=== PATIENT | female | born 1960 | race Caucasian/White ===

== ENCOUNTER 2016-10-11 13:00 | Inpatient (IN) | payer MEDICARE, MEDICAID ==
[2016-11-09] MEDS ORDERED: Scopolamine 1.5 mg/72 hour Patch ONE (06:06)
[2016-11-09] MEDS ORDERED: Bupivacaine HCl 0.5%/Epinephrine 1:200,000/PF 30 ml Vial ONE (06:50)
[2016-11-09] MEDS ORDERED: Heparin 5,000 UNITS/ML VIAL ONE (07:00)
[2016-11-09] MEDS ORDERED: Fentanyl 100 MCG/2 ML VIAL ONE ×2 (07:02→12:51)
[2016-11-09] MEDS ORDERED: Oxymetazoline HCl 0.05% ( 15 ML ) ONE (07:03)
[2016-11-09] MEDS ORDERED: Levofloxacin 500 mg/D5W 100 ml Premix Bag ONE (07:39)
[2016-11-09] MEDS ORDERED: Succinylcholine Chloride 20 MG/ML 10 ml SYRINGE FS ONE (07:59)
[2016-11-09] MEDS ORDERED: Lidocaine 1% PF 5 ML VIAL ONE (07:59)
[2016-11-09] MEDS ORDERED: Dexamethasone 20 MG/5 ML VIAL ONE (07:59)
[2016-11-09] MEDS ORDERED: PHENYLEPHRINE-NS 100 MCG/ML 10 ML SYRINGE ONE (07:59)
[2016-11-09] MEDS ORDERED: Propofol 200 MG/20 ML VIAL ONE (07:59)
[2016-11-09] MEDS ORDERED: ePHEDrine/0.9% NaCl/PF SYRINGE 50 mg/10 ml ONE (07:59)
[2016-11-09] MEDS ORDERED: Ondansetron HCl/PF 4 MG/2 ML Vial ONE (07:59)
[2016-11-09] MEDS ORDERED: Phenylephrine 10 MG/NS 250 ML 250 ML ONE (08:16)
[2016-11-09] MEDS ORDERED: SUGAMMADEX SODIUM 500 MG/5 ML VIAL ONE (09:04)
[2016-11-09] MEDS ORDERED: Nitroglycerin 2% Ointment 1 INCH/1 GM Packet ONE (09:06)
[2016-11-09] MEDS ORDERED: Nitroglycerin 50 MG/250 ML BOT 250 ML ONE (09:07)
[2016-11-09] MEDS ORDERED: Rocuronium Bromide 50 MG/5 ML VIAL ONE (10:53)
[2016-11-09] MEDS ORDERED: diphenhydrAMINE HCl 50 MG/ML 1 ML VIAL IVP PRN (12:16)
[2016-11-09] MEDS ORDERED: Dextrose 5% in Water 1,000 ML IV PRN (12:16)
[2016-11-09] MEDS ORDERED: Promethazine HCl 25 MG/ML VIAL IM PRN (12:16)
[2016-11-09] MEDS ORDERED: Dextrose 50% Abboject 50 ML SYRINGE SLOW IVP PRN ×2 (12:16)
[2016-11-09] MEDS ORDERED: Morphine Sulfate 2 MG/ML SYRINGE SLOW IVP PRN (12:16)
[2016-11-09] MEDS ORDERED: Dextrose 5% in Water 1,000 ML IV SCH (12:30)
[2016-11-09] MEDS: D5 1/2 NS w/20 mEq KCL 1,000 ML IV SCH ×2 (13:23→19:54)
[2016-11-09] MEDS ORDERED: Nitroglycerin 50 MG/250 ML BOT 250 ML IVPB SCH (13:45)
--- NOTE | 2016-11-09 13:49 | OP ---
PREOPERATIVE DIAGNOSES: Morbid obesity, stapler malfunction. SURGEON: Heath Tovar M.D. COAL TRAM DRIVER: Regis Sanchez M.D. PROCEDURE PERFORMED: Laparoscopic hand-assisted Mariah-en-Y gastric bypass with intraoperative esopha gogastroscopy. INDICATIONS: Patient is a 55-year-old morbidly obese female who has attempted multiple weight loss programs without success. She has severe reflux and desired a Mariah-en-Y gastric bypass. FINDINGS: Things went well. She had a very heavy large omentum necessitating splitting of the omen ofelia after firing of the EEA stapler at the gastrojejunostomy and trying to extract the EEA stapler. The anvil disconnected from the stapler and was lodged inside the gastric pouch which was very diff icult to get out and required conversion to a hand-assisted port in order to get it out and then was able to complete the surgery. PROCEDURE IN DETAIL: After informed consent was obtained, the patient was taken to the operating ro om and given general endotracheal anesthesia. Her abdomen was prepped and draped in the usual fashi on. Local anesthesia infiltrated subcutaneously and deep. A 12 mm incision was performed approxima tely 8 inches below the xiphoid slightly to the left. A Veress needle inserted. Drop test performe d. Pneumoperitoneum was created to a volume of 2 liters of carbon dioxide. Utilizing a bladeless 1 2 mm trocar and 0-degree laparoscope, direct visual entry in the abdominal cavity was performed. Pn eumoperitoneum was created to a pressure of 15 mmHg. The patient then under direct vision, two 12 m m ports were placed on the right side and one on the left. The omentum was grasped and advanced sup eriorly. The ligament of Treitz was identified. The jejunum was run 50 cm, then divided with the G IA 60 mm white load. Then the Mariah limb was measured off at 100 cm and a [id number] functional en d-to-end anastomosis was performed. Enterotomies were performed and the MANINDER 60 mm stapler was inser kiel one limb in each limb of bowel, closed, fired. Common enterotomy was closed with a transverse f iring of the MANINDER 60. The potential hernia of Topete was closed with a pursestring 2-0 silk suture . Now at this point, the patient was placed in steep reverse Trendelenburg position. Nathansen felisa er retractor inserted. Left lobe of liver retracted superiorly. An attempt was made at a linear si de-to-side anastomosis gastrojejunostomy. The gastric pouch was first created utilizing a series of linear 60 mm blue load staplers from the lesser curvature and up through the angle of His. Then, a n enterotomy or gastrotomy was performed with electrocautery anteriorly and this was enlarged with b kamilah dissection, the Mariah limb was found and brought up, but there was a lot of tension, so the omen ofelia was split utilizing the LigaSure. Then, an enterotomy was performed in the jejunum and the line ar 60 mm blue load stapler was inserted one limb and limb of the jejunum and one limb into the stoma ch pouch. This was closed and fired. At the conclusion of this, it was noted that the gastrotomy h ad torn away because of the weight of the bowel on this area. I was not happy with the anastomosis and elected to redo this with an EEA, so through the gastrostomy, the anvil was inserted within the gastric pouch. It was tented up anteriorly and electrocautery was used to score the stomach wall. The anvil was brought from the inside stomach out through this anterior opening. Then, the gastroto my was closed with a MANINDER 60 mm blue load stapler. Then, the incision was enlarged in left upper amandeep drant and the EEA was inserted into the jejunum and brought out antimesenteric completely so that y ou could not see the orange hub. The spike was attached to the anvil with a good snap and then clos ed maximally. Then, it was fired and opened one and half turns, then it was removed and as it is re moved, felt a pop and there was no anvil. The anvil was not attached to the stapler. I went ahead and did an endoscopy. I could not really see the anvil but we felt like we could feel it in the ann , so a gastrotomy was performed to try and find this anvil which seemed like it was medial and we opened up the staple line medially, I really could not get to it, so I opened up the Mariah limb [facility] and at this point I had Dr. Sanchez scrubbed in and we were able to see, part of it, but we could not grab it. So, the left upper quadrant incision was converted to hand-assisted port and the skin was incised. The muscle and fascia incised and the hand-assisted port inserted. This allowed the ability to grasp the anvil and retrieve it. We removed the anvil. Then, the original gastrotomy or the medial gastrotomy was closed with a blue linear stapler. Then using a white stapler, 60 mm, th e redundant limb of the Mariah limb to close off the enterotomy. Intraoperative endoscopy was perform ed. The video endoscope inserted under direct vision and advanced easily into the Mariah limb. This was insufflated with air under water. There was no air leak. There was no hemorrhage. The bowel w as decompressed and the scope removed. Hemostasis was assured. Trocars and retractors removed. Th e fascia closed with a running #1 PDS on the hand-assisted port area, subcutaneous irrigated. Subcu taneous closed with interrupted 3-0 Vicryl. Skin closed with running subcuticular 4-0 Rapide. Ster i-Strips applied. Sterile bandages applied. Patient tolerated the procedure well, but she did have EKG changes during the procedure and required nitroglycerin. For that reason, we are going to watc h her in the ICU postoperatively for rule out MN.
[2016-11-09 14:08] LABS: Troponin I Less than 0.010 ng/mL (< 0.028)
--- NOTE | 2016-11-09 14:24 | CON ---
DATE OF CONSULTATION: 11/09/2016 CONSULTING PHYSICIAN: Heath Tovar M.D. Forty-five minutes critical care time. HISTORY OF PRESENT ILLNESS: This is a 55-year-old female who underwent laparoscopic gastric bypass surgery earlier today. Towards the end of the procedure, she developed ST segment depression. She was started on a nitroglycerin drip by the Anesthesia team and she was brought to the CCU for furthe r therapy. This patient saw me in the office a couple of weeks ago in reference to sleep apnea. She does have sleep apnea, but was unable to get a new CPAP machine because it was deemed she needed a new sleep s tudy by her insurance provider. She also underwent cardiac catheterization by Dr. Santana with apparen t clean coronaries and was cleared for surgery from their aspect. At the current time, she is not experiencing any chest pain, although she says she is somewhat short of breath. PAST MEDICAL HISTORY: 1. Hypertension. 2. Morbid obesity. 3. Leg edema. 4. Congestive heart failure. 5. Obstructive sleep apnea. 6. Chronic obstructive pulmonary disease. 7. Postmenopausal. 8. Depression. PAST SURGICAL HISTORY: Gastric banding in 2008 and subsequent removal, laparoscopic cholecystectomy , section, heart catheterization x2, colonoscopy, endoscopy and a tubal ligation. MEDICATIONS PRIOR TO ADMISSION: Cetirizine 10 mg daily, potassium chloride 10 mEq daily, metolazone 2.5 mg daily, Protonix 40 mg twice daily, verapamil 180 mg daily, Prozac 40 mg daily and furosemide 40 mg daily. FAMILY MEDICAL HISTORY: Mother of cancer. She also has high blood pressure and cervical cance r that run in her family. SOCIAL HISTORY: Patient is a former smoker, does not consume alcohol. ALLERGIES: AMOXICILLIN, PENICILLIN and PERCOCET cause rashes. REVIEW OF SYSTEMS: Twelve-point review of systems otherwise negative. PHYSICAL EXAMINATION: VITAL SIGNS: Her temperature is 98, pulse 81, blood pressure 139/65 and O2 sats 95% on simple Venti mask. HEENT: Pupils react. Sclerae anicteric. Oropharynx clear. NECK: Without adenopathy, JVD or bruits. LUNGS: Clear to auscultation bilaterally with no wheezing. CARDIAC: S1 and S2 regular with a 3/6 systolic murmur. ABDOMEN: Soft, obese and nontender. NEUROLOGIC: She has 4 ports that had been covered with Band-Aids. EXTREMITIES: 1+ brawny edema in lower extremities. LABORATORY DATA: She has had labs drawn postoperatively, but results are pending. ASSESSMENT: 1. Transient ST segment depression on EKG - not prominent on the current EKG that I am seeing, but I do not have access to the findings that were present in the OR at this time. 2. Underlying chronic obstructive pulmonary disease. 3. Sleep apnea. 4. History of heart failure. RECOMMENDATIONS: 1. Cardiology consultation has been ordered. Await results of troponin and other laboratory testin g. 2. Continue nitroglycerin drip for the time being. 3. Nebulization treatments. 4. BiPAP at night as needed for sleep apnea.
[2016-11-09 14:33] LABS: ALT (SGPT) 300 U/L (8-55); AST (SGOT) 233 U/L (5-34); Alkaline Phosphatase 66 U/L (40-150); Anion Gap 11 mmol/L (10-20); BUN (Urea Nitrogen) 12 mg/dL (9.8-20.1); Bilirubin, Total 0.5 mg/dL (0.2-1.2); Calc. Creatinine Clearance 212 mL/min (70-130); Calcium 8.6 mg/dL (7.8-10.44); Carbon Dioxide 28 mmol/L (22-29); Chloride 103 mmol/L (98-107); Estimated GFR-MDRD 86; Globulin 3.5 g/dL (2.4-3.5)
[2016-11-09 14:46] LABS: #Lymphocytes 0.5 thou/uL (1.20-3.40); #Monocytes 0.6 thou/uL (0.11-0.59); #Neutrophils 14.8 thou/uL (1.40-6.50); %Eosinophils 0.2 % (0.0-10.0); %Lymphocytes 3.2 % (21.0-51.0); %Monocytes 3.7 % (0.0-10.0); Anisocytosis MODERATE=16-30 cells (100X) (0-5/hpf); Hematocrit 39.7 % (36.0-47.0); Hypochromia SLIGHT = 6-15 cells (100X) (0-5/hpf); Mean Platelet Volume 6.9 fL (7.4-10.4); Microcytosis SLIGHT = 6-15 cells (100X) (0-5/hpf); Ovalocytes MODERATE= 6-15 cells (100X) (0-1/hpf); Polychromasia SLIGHT = 2-3 cells (100X) (0-2/hpf); Red Blood Cell (RBC) Count 5.16 mill/uL (4.20-5.40); White Blood Cell (WBC) Count 15.9 thou/uL (4.8-10.8)
[2016-11-09] MEDS ORDERED: Ketorolac Tromethamine 60 MG/2 ML VIAL ONE (15:02)
[2016-11-09] MEDS: Ketorolac Tromethamine 30 MG/ML VIAL IVP PRN ×2 (15:40→21:10)
[2016-11-09 17:08] LABS: Oxyhemoglobin 97.1 % (94.0-97.0); Sodium 139 mmol/L (135-148)
[2016-11-09 17:09] LABS: Oxyhemoglobin 92.9 % (94.0-97.0); Sodium 140 mmol/L (135-148)
[2016-11-09 17:48] LABS: Mode OR ABG; Vent YES
[2016-11-09 17:48] LABS: Mode OR ABG; Vent YES
[2016-11-09] MEDS: Ondansetron HCl/PF 4 MG/2 ML Vial IVP PRN (19:45)
[2016-11-09 20:37] LABS: Troponin I Less than 0.010 ng/mL (< 0.028)
--- NOTE | 2016-11-09 22:19 | CON ---
DATE OF CONSULTATION: 11/09/2016 ROOM NUMBER: C4 in the CCU. PRIMARY CARE PHYSICIAN: Dr. Heath Tovar. PRIMARY BUSINESS SOLUTION ANALYST: Dr. Santana. REASON FOR CARDIOLOGY CONSULTATION: EKG change during the gastric bypass surgery in 11/09/2016. HISTORY OF PRESENT ILLNESS: Ms. Linder is a 55-year-old female with a significant history of hypertension, obesity and ex-smoker, she quit 1 month ago. Ms. Linder underwent gastric bypass surgery today by Dr. Tovar. Towards the end of the surgery, The patient's EKG showed ST segment change in lead V5. She was transferred to the CCU with nitroglycerin drip for further evaluation and continuous public weigher. Unfortunately, the EKG showing those episodes are not in the patient's record or in the charts at this moment. The EKG which was taken when she was transferred to the CCU shows sinus rhythm with no ST changes and looks very similar to the patient's previous EKG in 10/17/2016. The patient underwent cardiac catheterization on 09/01/2016, which shows normal coronary artery disease with 16 mmHg, LVOT gradient measure at the pull back. Echocardiogram in 07/2016 shows EF of 65% to 70% with severe concentric left ventricular hypertrophy, idiopathic hypertrophic subaortic stenosis with systolic anterior motion of the mitral valve, IHSS gradient is 85 mmHg, grade I diastolic dysfunction without elevated left atrial pressure, mitral valve regurgitation, mitral tricuspid valve regurgitation, mildly elevated right ventricular systolic pressure. The patient's cholesterol level in 08/2016, showed total cholesterol of 151, triglycerides 76, HDL 34, and LDL 104. During the initial Cardiology consult assessment, the patient was still drowsy from today's surgery, but she is alert and oriented x4. She is complaining of the pressure in her abdomen due to the gas during the surgery and the patient is having the frequent passing and burping. The patient denied any chest pain or discomfort, palpitation or fluttering in her chest, dizziness or lightheadedness , numbness in the left arm, diaphoresis, or nausea or vomiting at this time. The patient's daughter is at the bedside at this time. PAST MEDICAL HISTORY: 1. Hypertension. 2. Diastolic heart failure. 3. Obstructive hypertrophic cardiomyopathy. 4. Sleep apnea. 5. Chronic obstructive pulmonary disease. 6. Ex-smoker, she quit 1 month ago. PAST SURGICAL HISTORY: 1. x1. 2. Lap band placed and removed. 3. Gallbladder removal. 4. Cardiac catheterization, latest procedure was in 09/2016. FAMILY HISTORY: There was significant history of diabetes in maternal side. The patient's maternal grandfather due to cardiac disease. The patient 's maternal grandmother due to stroke. SOCIAL HISTORY: The patient is and lives with patient's daughter and patient's brother. She used occasional alcohol use. She is an ex-smoker. She quit 09/27/2016 for this gastric bypass surgery. She used to enjoy coffee 2-3 cups in the morning and one soda at night; however, because of this procedure today, she cut down to one cup of coffee a day. Unfortunately, she does not do an exercise that much due to the congestive heart failure and obesity. REVIEW OF SYSTEMS: The following complete review of systems was negative, unless otherwise mentioned in the HPI or below. Constitutional: Sense of well being, ability to conduct usual activity and exercise tolerance. Skin: Rash, itching, change in hair growth or loss, nail change, breast lump, tenderness, swelling, nipple discharge. Eyes: Vision change, double vision, tearing, blind spots or pain. She wears glasses for reading. HEENT: Headache vertigo, lightheadedness, nose bleeding, cold, nose obstruction or discharge, dental difficulty, gingival bleeding, neck stiffness, pain, tenderness, mass in the thyroid or other areas. Cardiovascular: Precordial pain, substernal distress, palpitations, syncope, dyspnea on exertion, orthopnea, nocturnal dyspnea, cyanosis, claudication. She has chronic edema in bilateral lower extremities; however, according to the daughter's report the CHF symptoms such as edema in the lower extremities and shortness of breath were stable for the last one month. Respiratory: Pain, shortness of breath, wheezing, stridor, cough, hemoptysis. Gastrointestinal: Poor appetite, dysphagia, indigestion, abdominal pain, heartburn, nausea or vomiting, jaundice, constipation or diarrhea. Abnormal stools, hemorrhoid, recent change in the bowel habit. Genitourinary: Urgency, frequency, dysuria, nocturia, hematuria, polyuria, oliguria, unusual color of urine, stones, hesitancy. Musculoskeletal: Pain, swelling, redness or heat of the muscle or joint, limitation of motion, muscular weakness, atrophy or cramps, but she uses a scooter for long distance due to her obesity and CHF symptoms; however, she can walk around the home without any difficulty. Neurologic: Seizure conversion paralysis, tremor, incoordination, difficulty with memory of speech, sensory or motor disturbance or muscular coordination. Psychiatric: Emotional problem, anxiety, depression , previous psychiatric care, unusual perceptions, hallucinations. PHYSICAL EXAMINATION: VITAL SIGNS: Blood pressure 140/46, heart rate 76 with sinus rhythm, respiratory rate 12, O2 sat 96% with 2.5 liters, temperature 97.8. GENERAL: Well-developed, well-nourished without any acute distress. The patient is very lethargic and drowsy from previous procedure in this morning. HEAD: Normocephalic, atraumatic. EYES: Extraocular muscle movements are intact. ENT: Oral and nasal mucosa are moist without lesion. NECK: No JVD. Neck is supple and normal range of motion. LUNGS: Clear to auscultate bilaterally, but diminished at the bases. No wheezing, no rales or rhonchi noted. CARDIOVASCULAR: Regular rate and rhythm. Normal S1 and S2. There are no S3 or S4. There are murmurs noted in left upper sternal border, but no hives, thrill, bruits or rubs noted. EXTREMITIES: There are 2+ pulses in the bilateral dorsal pedis and posterior tibial. Carotid pulse present without bruit or thrill. There are 2-3+ edema in the bilateral lower extremities. ABDOMEN: Tender to palpate. Bowel sounds are very hypoactive. They have 4 laparoscopic access to her abdomen with Dermabond. MUSCULOSKELETAL: She is able to move all extremities, but complained about back pain from long time lay in surgical bed. SKIN: Warm and dry. No skin rash, lesion or bruise noted. The surgical site is dry and intact. NEUROLOGIC: The patient is alert and oriented x4, drowsy, but normal affect, no focal. PSYCHIATRIC: Mood and affect are normal. EKG: A 12-lead EKG, which was taken in the CCU shows sinus rhythm with heart rates of [address] segment changes. LABORATORY DATA: WBC 15.6, hemoglobin 11.8, hematocrit 39.7, platelet 202. Sodium 138, potassium 3.7, BUN 12, creatinine 0.71, glucose 180. AST is 19 and ALT is 24, CK-MB is 3.4. Troponin is less than 0.010, which was taken at 1315 hours. ASSESSMENT AND PLAN: 1. ST segment changes during the gastric bypass surgery. Unfortunately, there is no EKG records during the procedure showing the ST segment change in her records or in her chart at this moment. The 12-lead EKG, which was taken at the CCU show normal sinus rhythm with no ST segment change and the patient is asymptomatic at this time. The patient's cardiac catheterization in 08/2016 shows normal coronary artery disease. 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 2. Obstructive hypertrophic cardiomyopathy. The patient's condition is stable at this time. Depends on the patient's condition, we may like to start Lasix and metolazone 2.5 mg once a day. We would like to continue to monitor at this moment. 3. Hypertension. Her blood pressure is stable at this time. She is on the p.r.n. hydralazine IV push medication. We may start verapamil 80 mg once a day. 4. Chronic obstructive pulmonary disease. She has a long history of tobacco abuse. She quit smoking last month ago. At this moment, the patient's lung is clear, diminished at the bases, but this condition is stable and Dr. Mckinney has already assessed this patient. 5. Sleep apnea, the patient's condition is stable at this moment. We like to continue to monitor. Thank you very much for allowing the Cardiology Service to participate in care of this patient. We will follow along with the patient's care team and make further recommendations as appropriate.Dr. Santana will follow up with this patient from tomorrow. CASSIDY
[2016-11-10] MEDS: D5 1/2 NS w/20 mEq KCL 1,000 ML IV SCH ×4 (04:15→21:47)
[2016-11-10] MEDS: Ondansetron HCl/PF 4 MG/2 ML Vial IVP PRN (04:18)
[2016-11-10 05:15] LABS: #Lymphocytes 0.9 thou/uL (1.20-3.40); #Monocytes 1.2 thou/uL (0.11-0.59); #Neutrophils 10.8 thou/uL (1.40-6.50); %Basophils 0.1 % (0.0-1.0); %Eosinophils 0.1 % (0.0-10.0); %Lymphocytes 7.1 % (21.0-51.0); Hematocrit 37.9 % (36.0-47.0); Mean Platelet Volume 11.4 fL (7.4-10.4); Red Blood Cell (RBC) Count 4.85 mill/uL (4.20-5.40); White Blood Cell (WBC) Count 12.9 thou/uL (4.8-10.8)
[2016-11-10 05:39] LABS: Troponin I 0.029 ng/mL (< 0.028)
[2016-11-10 05:53] LABS: Chloride 103 mmol/L (98-107)
[2016-11-10 05:54] LABS: Calcium 8.6 mg/dL (7.8-10.44)
[2016-11-10 05:56] LABS: Anion Gap 14 mmol/L (10-20); Carbon Dioxide 24 mmol/L (22-29)
[2016-11-10 05:58] LABS: BUN (Urea Nitrogen) 12 mg/dL (9.8-20.1); Calc. Creatinine Clearance 231 mL/min (70-130); Estimated GFR-MDRD Greater than 90
[2016-11-10 06:07] LABS: ALT (SGPT) 336 U/L (8-55); AST (SGOT) 232 U/L (5-34); Alkaline Phosphatase 64 U/L (40-150); Bilirubin, Direct 0.3 mg/dL (0.1-0.3); Bilirubin, Total 0.6 mg/dL (0.2-1.2); Protein, Total 7.1 g/dL (6.0-8.3)
--- NOTE | 2016-11-10 06:13 | ADD-CON ---
ADDENDUM DATE OF ADMISSION: 11/09/2016 DATE OF CONSULTATION: 11/09/2016 INDICATION FOR CONSULTATION: A 55-year-old female with EKG changes in the perioperative period for a gastric procedure. HISTORY OF PRESENT ILLNESS: This unfortunate lady who is 55 years old, does have a history of left ventricular outflow tract obstruction with history of chest pain in the past. She did have an echoc ardiogram, which showed normal ejection fraction. She also had a cardiac catheterization in 2010, w hich showed normal coronary arteries, ejection fraction 55%, with her obstructive hypertrophic cardi omyopathy. She has remained stable. She has been seen in the office and followed up by Dr. Santana. She also has some hypertension, which is now under reasonable control. During her EKG changes today in the operating suite, I did not have any indication or I do not see any tracings at this time to compare. I am not quite certain of which EKG changes occurred, whether or not she has some type of arrhythmia. There is no documentation in the chart that I can find at this time to indicate an abno rmality that was found during the procedure and this will need to be discussed this with the anesthe siologist if there are any significant concerns about the patient, but certainly with her history of hypertrophic obstructive cardiomyopathy, she may have some EKG changes. Otherwise, she has remaine d stable. She does have some discomfort in the back, but otherwise has no chest pain or any other c omplaints from a cardiac standpoint at this time. For her past medical history, social history and review of systems, please refer to the notes alread y dictated by the nurse practitioner, Bailey. PHYSICAL EXAMINATION: GENERAL: Reveals a morbidly obese female, who is in no acute distress at this time. VITAL SIGNS: Heart rate is 72 and regular. Her blood pressure is 148/80, respiratory rate is 13, O 2 saturation is 97%. CHEST: Clear to auscultation without rales, rhonchi or wheezing. CARDIOVASCULAR: Reveals a regular rate and rhythm. I did not hear any significant murmurs at this time. There were no heaves or thrills noted. ABDOMEN: Shows obesity. EXTREMITIES: Showed no clubbing, cyanosis or edema at this time. NEUROLOGIC: The patient appears to be intact. IMPRESSION: Some type of abnormal EKG changes during operative procedure in the perioperative perio d in a patient who has a hypertrophic obstructive cardiomyopathy, which has remained stable. I will continue her present medications at this time. Her medications prior to admission included Lasix, metolazone and potassium. Her medications included just Lasix 40 mg a day, metolazone 2.5 mg a day, Protonix 40 mg a day, verapamil 80 mg a day, Zyrtec 10 mg a day, as well as replacement of potassiu m. Dr. Santana will see the patient tomorrow, resume her care, but at this time from a cardiac standpo int, she appears to be stable. We will continue to monitor her for any further EKG changes or arrhy thmias.
--- NOTE | 2016-11-10 08:40 | PRG ---
DATE OF SERVICE: 11/10/2016 SUBJECTIVE: The patient has recovered from her episode yesterday without much fanfare. She is sore from her surgery. PHYSICAL EXAMINATION: VITAL SIGNS: On examination, temperature is 99.1, pulse 90, blood pressure 153/69, total intake 24 hours 5 and output 1000. HEENT: Unremarkable. NECK: No JVD. CHEST: Clear to auscultation. CARDIAC: S1 and S2 regular. ABDOMEN: Slightly distended. EXTREMITIES: No edema. LABORATORY DATA: Sodium 137, potassium 4.3, chloride 103, CO2 24, BUN 12, creatinine 0.6, glucose 1 17, AST 232, ALT 336, troponin 0.029. White blood cell count 12.9, hematocrit 37.9, and platelet co unt 220. ASSESSMENT: 1. Status post gastric bypass surgery. 2. ST segment depression perioperatively. 3. Obstructive sleep apnea. PLAN: She will be transferred out to the telemetry floor for continue cardiac monitoring. Cardiolo gy has been consulted. She will continue CPAP at night for ALESIA. Further care per General Surgery.
--- NOTE | 2016-11-10 09:28 | PDOC.CTH ---
Cardiology Progress Note - Subjective Doing well overnight. No new issues. Denies CV symptoms. Reviewed rhythm strips and ECGs. All stable. ROS negative this morning. - Objective Vital Signs Temp Pulse Resp BP Pulse Ox 11/10/16 07:02 86 19 100 11/10/16 04:00 99.1 F 11/10/16 00:40 96 176/77 H 11/10/16 00:00 98.2 F 11/09/16 22:26 76 13 95 Weight 322 lb 15.635 oz 11/09/16 11/10/16 11/11/16 06:59 06:59 06:59 Intake Total 2095 Output Total 1000 Balance 1095 - Physical Examination General/Neuro: alert & oriented x3, NAD Neck: carotid US brisk, no JVD present Lungs: CTA, unlabored respirations Heart: PMI normal, RRR Abdomen: no HSM, NT/ND, soft Extremities: + edema B Other PE findings: Neuro: no focal motor defs - Telemetry Telemetry Rhythm: sinus rhythm - Labs Result Diagrams: 11/10/16 04:40 11/10/16 04:40 Troponin/CKMB CK-MB (CK-2) 5.0 ng/mL (0-6.6) 11/10/16 04:40 Troponin I 0.029 ng/mL (< 0.028) H 11/10/16 04:40 - Assessment/Plan 1. ECG changes interoperatively: these are dynamic changes that can occur with intraabdominal pressure common with this surgery. No acute changes seen. She has no CAD and is not at risk of WI currently. ECG changes are secondary changes seen with LVH and HOCM. She may be transferred to surgical floor from CV perspective and taken off of telemetry now that she is in the postoperative phase of her hospitalization. She will follow up with me in the office as scheduled.
[2016-11-10] MEDS: Enoxaparin Sodium 40 MG/0.4 ML SYRINGE SC SCH (09:52)
[2016-11-10] MEDS: Pantoprazole 40 MG VIAL IVP SCH (09:52)
[2016-11-10] MEDS: Ketorolac Tromethamine 30 MG/ML VIAL IVP PRN ×2 (10:17→18:27)
[2016-11-10 13:22] LABS: Troponin I 0.107 ng/mL (< 0.028)
[2016-11-11] MEDS ORDERED: GASTROGRAFIN 30 ML BOT ONE (01:24)
[2016-11-11] MEDS: D5 1/2 NS w/20 mEq KCL 1,000 ML IV SCH (05:38)
[2016-11-11] MEDS ORDERED: Metolazone 2.5 MG TAB PO PRN (07:29)
--- NOTE | 2016-11-11 07:44 | PRG ---
DATE OF SERVICE: 11/11/2016 SUBJECTIVE: The patient remains in the ICU, she developed desaturation last night, required change to a vision BiPAP rather than her own home CPAP. She also had an increase in requirement of her O2. PHYSICAL EXAMINATION: VITAL SIGNS: Temperature 98.8, pulse 86, blood pressure 139/72, 24 intake 2934, output 915, weight 322 pounds. HEENT: Unremarkable. NECK: No JVD. LUNGS: She has inspiratory crackles at both bases best heard posteriorly. CARDIAC: S1 and S2 regular with a 2/6 systolic murmur at the left sternal border. ABDOMEN: Soft, slightly distended. Bowel sounds hypoactive. EXTREMITIES: No clubbing, cyanosis, trace edema. LABORATORY DATA: No new labs were obtained today. ASSESSMENT: 1. Pulmonary edema. 2. Hypoxemia. 3. Underlying obstructive sleep apnea. 4. Status post laparoscopic gastric bypass surgery. PLAN: The patient will be diuresed. I will restart her antihypertensives. I will stop her IV flui d, hopefully this will improve her O2 sats. She remains on Lovenox for DVT prophylaxis.
--- NOTE | 2016-11-11 08:02 | PDOC.CTH ---
Cardiology Progress Note - Subjective Desats last night noted on BiPAP. Exam consistent with CHF. Denies CP. Rhythm stable. - ROS shortness of breath - Objective Vital Signs Temp Pulse Resp Pulse Ox 11/11/16 07:22 87 94 L 11/11/16 07:19 87 17 94 L 11/11/16 05:00 98.8 F 11/11/16 04:00 19 11/11/16 02:25 102 H 11/10/16 22:03 117 H 18 94 L 11/10/16 21:00 109 H 11/10/16 20:00 99.1 F 117 H 18 90 L Weight 322 lb 15.635 oz 11/10/16 11/11/16 11/12/16 06:59 06:59 06:59 Intake Total 2095 2934 Output Total 1000 915 Balance 1095 2019 - Physical Examination General/Neuro: alert & oriented x3, NAD Neck: carotid US brisk, no JVD present Lungs: CTA, unlabored respirations Heart: PMI normal, RRR Abdomen: no HSM, NT/ND, soft Extremities: + edema B Other PE findings: Neuro: no focal motor defs - Telemetry Telemetry Rhythm: sinus rhythm - Labs Result Diagrams: 11/10/16 04:40 11/10/16 04:40 Troponin/CKMB CK-MB (CK-2) 5.3 ng/mL (0-6.6) 11/10/16 12:42 Troponin I 0.107 ng/mL (< 0.028) H 11/10/16 12:42 - Assessment/Plan 1. ECG changes interoperatively: these are dynamic changes that can occur with intraabdominal pressure common with this surgery. No acute changes seen. She has no CAD and is not at risk of HI currently. ECG changes are secondary changes seen with LVH and HOCM. She may be transferred to surgical floor from CV perspective and taken off of telemetry now that she is in the postoperative phase of her hospitalization. She will follow up with me in the office as scheduled. 2. CHF, acute/chronic diastolic: agree with gentle diuresis. Avoid overdoing this to prevent worsening of LVOT gradient. 3. HOCM: mild LVOT gradient preop. Monitor with diuresis. Can go to surgical floor when ok with surgery and critical care staff.
[2016-11-11] MEDS: Furosemide 40 MG/4 ML VIAL SLOW IVP SCH ×2 (08:38→22:28)
[2016-11-11] MEDS: Enoxaparin Sodium 40 MG/0.4 ML SYRINGE SC SCH (08:38)
[2016-11-11] MEDS: Pantoprazole 40 MG VIAL IVP SCH (08:38)
[2016-11-11] MEDS ORDERED: Furosemide 40 MG/4 ML VIAL SLOW IVP SCH (09:00)
[2016-11-11] MEDS ORDERED: Furosemide 40 MG TAB PO SCH (09:00)
[2016-11-11] MEDS: Ketorolac Tromethamine 30 MG/ML VIAL IVP PRN ×2 (09:05→17:33)
[2016-11-11 20:13] VITALS: BMI 51.6
--- NOTE | 2016-11-11 20:47 | RAD ---
MODIFIED UPPER GI 11/11/16 INDICATION: Status post gastric bypass. Total fluoroscopic time - 0.8 minutes; total exposure - 422.39 mGy. FINDINGS: 15 mL of gastrografin were administered PO. There is no evidence of extraluminal leak or obstruction . IMPRESSION: No extraluminal leak or obstruction involving the patient's gastric bypass. POS: [facility]
[2016-11-12] MEDS: Ketorolac Tromethamine 30 MG/ML VIAL IVP PRN ×2 (03:01→11:54)
[2016-11-12 04:52] LABS: #Eosinphils 0.1 thou/uL (0.0-0.7); #Lymphocytes 0.6 thou/uL (1.20-3.40); #Monocytes 0.7 thou/uL (0.11-0.59); #Neutrophils 8.4 thou/uL (1.40-6.50); %Basophils 0.5 % (0.0-1.0); %Eosinophils 0.7 % (0.0-10.0); %Lymphocytes 6.3 % (21.0-51.0); %Monocytes 7.4 % (0.0-10.0); Hematocrit 32.4 % (36.0-47.0); Mean Platelet Volume 11.4 fL (7.4-10.4); Red Blood Cell (RBC) Count 4.11 mill/uL (4.20-5.40); White Blood Cell (WBC) Count 9.9 thou/uL (4.8-10.8)
[2016-11-12 05:05] LABS: Anion Gap 13 mmol/L (10-20); BUN (Urea Nitrogen) 14 mg/dL (9.8-20.1); Calc. Creatinine Clearance 216 mL/min (70-130); Calcium 8.9 mg/dL (7.8-10.44); Carbon Dioxide 31 mmol/L (22-29); Chloride 100 mmol/L (98-107); Estimated GFR-MDRD 89
[2016-11-12] MEDS: Furosemide 40 MG/4 ML VIAL SLOW IVP SCH ×2 (08:52→21:58)
[2016-11-12] MEDS: Pantoprazole 40 MG VIAL IVP SCH (08:52)
[2016-11-12] MEDS: Enoxaparin Sodium 40 MG/0.4 ML SYRINGE SC SCH (08:53)
[2016-11-12] MEDS: FLUoxetine HCl 20 MG CAP PO SCH (08:53)
[2016-11-12] MEDS ORDERED: Magnesium 2 GM/NS 0.9% 100 ML 2 GM in Premix Bag 1 BAG IVPB SCH (11:15)
--- NOTE | 2016-11-12 11:26 | PDOC.CTH ---
Cardiology Progress Note - Subjective Doing well/ Denies any chest pain, tightness, pressure, SOB. - Objective Vital Signs Temp Pulse Resp Pulse Ox 11/12/16 08:44 96 11/12/16 08:40 75 16 96 11/12/16 04:00 99.1 F 11/12/16 02:16 108 H 22 H 93 L 11/12/16 00:00 99.4 F Weight 320 lb 11/11/16 11/12/16 11/13/16 06:59 06:59 06:59 Intake Total 2934 361 60 Output Total 915 3325 0 Balance 2018 60 - Physical Examination General/Neuro: alert & oriented x3, NAD Neck: no JVD present Lungs: unlabored respirations Heart: other: (Irregular) Abdomen: NT/ND Extremities: + edema B (1+) - Telemetry Telemetry Rhythm: Afib - Labs Result Diagrams: 11/12/16 04:25 11/12/16 04:25 Troponin/CKMB CK-MB (CK-2) 5.3 ng/mL (0-6.6) 11/10/16 12:42 Troponin I 0.107 ng/mL (< 0.028) H 11/10/16 12:42 - Assessment/Plan 1. ECG changes interoperatively. 2. CHF, acute/chronic diastolic 3. HOCM 4. Paroxysmal afib. PLAN: - Cautious diuresis given her history of HCM. - Currently in afib in the 150's with borderline low BP, will start amiodarone drip.
--- NOTE | 2016-11-12 11:56 | PRG ---
DATE OF SERVICE: 11/12/2016 SUBJECTIVE: Ms. Linder is doing well. She is having no pain, no nausea, no reflux symptoms, she pa ssed her swallow test yesterday. She is doing well on the liquids and would like to drink more. Katya olivares been in atrial fibrillation with RVR this morning, has been seen by Dr. Calvo. She is on amiodar one, hemodynamically stable. Her abdomen is soft, nontender, nondistended. LABORATORY DATA: White blood cell count is 9, hemoglobin 9.7, creatinine 0.69. ASSESSMENT: Postoperative day #3, gastric bypass, laparoscopy by Dr. Tovar. Doing well overall, bu t now with atrial fibrillation with rapid ventricular response, controlled on amiodarone. PLAN: Stay in the ICU, but will allow liquids as tolerated. Continue to encourage ambulation as mu ch as possible here.
[2016-11-12] MEDS: AMIODARONE HCL IVPB SCH ×6 (11:58→20:07)
[2016-11-12] MEDS: WATER IVPB SCH ×6 (11:58→20:07)
[2016-11-12] MEDS: ADMIXTURE FEE IVPB SCH ×6 (11:58→20:07)
[2016-11-12] MEDS: DEXTROSE IVPB SCH ×6 (11:58→20:07)
--- NOTE | 2016-11-12 15:34 | PRG ---
DATE OF SERVICE: 11/12/2016 SUBJECTIVE: She denies any difficulty breathing or pain. PHYSICAL EXAMINATION: VITAL SIGNS: Blood pressure is 196/69, sats are , temperature 98 to 99.1. CHEST: Decreased breath sounds without any wheezing. CARDIAC: Normal S1, S2. No gallops. ABDOMEN: Soft. No masses. LABORATORY: White count 9000, H\T\H is 10 and 32, platelet count normal. Electrolytes are normal. IMPRESSION: 1. Status post gastric bypass. 2. Obesity. 3. Congestive heart failure. PLAN: She appears to be stable. Continue present neb treatments. Continue CPAP. We will follow.
[2016-11-13] MEDS: Ketorolac Tromethamine 30 MG/ML VIAL IVP PRN (03:46)
[2016-11-13] MEDS: Furosemide 40 MG/4 ML VIAL SLOW IVP SCH (08:21)
[2016-11-13] MEDS: Pantoprazole 40 MG VIAL IVP SCH (08:21)
[2016-11-13] MEDS: Enoxaparin Sodium 40 MG/0.4 ML SYRINGE SC SCH (08:21)
[2016-11-13] MEDS: FLUoxetine HCl 20 MG CAP PO SCH (08:21)
[2016-11-13] MEDS: DEXTROSE IVPB SCH ×3 (11:41)
[2016-11-13] MEDS: ADMIXTURE FEE IVPB SCH ×3 (11:41)
[2016-11-13] MEDS: AMIODARONE HCL IVPB SCH ×3 (11:41)
[2016-11-13] MEDS: WATER IVPB SCH ×3 (11:41)
[2016-11-13] MEDS ORDERED: Digoxin 0.5 MG/2 ML AMP SLOW IVP SCH (11:45)
--- NOTE | 2016-11-13 14:16 | PDOC.CTH ---
Cardiology Progress Note - Subjective She is feeling well. Her HR remains in afib in the 120's borderline BP. - Objective Vital Signs Temp Pulse Resp Pulse Ox 11/13/16 13:50 68 12 100 11/13/16 12:59 82 11/13/16 11:56 97.9 F 11/13/16 09:45 96 14 98 11/13/16 08:00 98.4 F 96 14 96 11/13/16 06:21 79 16 100 11/13/16 04:00 98.6 F 11/13/16 02:33 83 18 98 Weight 310 lb 11/12/16 11/13/16 11/14/16 06:59 06:59 06:59 Intake Total 361 946 590 Output Total 3325 3250 800 Balance -1955 -3748 -210 - Physical Examination General/Neuro: alert & oriented x3, NAD Neck: no JVD present Lungs: unlabored respirations Heart: other: (Irregular) Abdomen: NT/ND Extremities: + edema B (1+) - Telemetry Telemetry Rhythm: Afoib HR 120 - Labs Result Diagrams: 11/12/16 04:25 11/12/16 04:25 Troponin/CKMB CK-MB (CK-2) 5.3 ng/mL (0-6.6) 11/10/16 12:42 Troponin I 0.107 ng/mL (< 0.028) H 11/10/16 12:42 - Assessment/Plan 1. ECG changes interoperatively. 2. CHF, acute/chronic diastolic 3. HOCM 4. Paroxysmal afib. PLAN: - Will hold diuresis today given history of HCM. - Continue amiodarone drip. Add digoxin.
[2016-11-13] MEDS: Hydrocodone-Acetamin 15 ML UDCUP PO PRN (14:32)
--- NOTE | 2016-11-13 17:10 | PRG ---
DATE OF SERVICE: 11/13/2016 SUBJECTIVE: Ms. Linder is doing well today. She is wearing her CPAP and denies complaints. Pain i s well controlled. PHYSICAL EXAMINATION: VITAL SIGNS: Her pulse is in the mid 80s. Her blood pressure is stable. She is afebrile. ABDOMEN: Soft. The wounds are healing well. ASSESSMENT: Postoperative day #4, laparoscopic gastric bypass with significant comorbidities, now i n atrial fibrillation, controlled on amiodarone drip. PLAN: I think she is stable to transfer to [facility]. Encouraged her to ambulate. Continue CPAP when s he is sleeping. Will allow bariatric full liquid diet. Add Lortab elixir for pain.
--- NOTE | 2016-11-13 17:34 | PRG ---
DATE OF SERVICE: 11/13/2016 SUBJECTIVE: Pebbles Linder this morning, awake, alert, responsive. She is still in SVT, on amiodar one. She denies any difficulty breathing. PHYSICAL EXAMINATION: VITAL SIGNS: Blood pressure 94/64, pulse 120 and regular, respirations 18, sats 94%. CHEST: Decreased breath sounds, no wheezing. CARDIAC: Normal S1 and S2. IMPRESSION: Status post Lap-Band, supraventricular tachycardia, morbid obesity, sleep apnea. PLAN: and amiodarone to control SVT. Continue supportive care. Agreed with transfer to telemetry. We will follow.
[2016-11-14] MEDS: Hydrocodone-Acetamin 15 ML UDCUP PO PRN ×3 (01:34→22:37)
[2016-11-14] MEDS: ADMIXTURE FEE IVPB SCH ×3 (04:05)
[2016-11-14] MEDS: WATER IVPB SCH ×3 (04:05)
[2016-11-14] MEDS: DEXTROSE IVPB SCH ×3 (04:05)
[2016-11-14] MEDS: AMIODARONE HCL IVPB SCH ×3 (04:05)
--- NOTE | 2016-11-14 09:24 | PRG ---
DATE OF SERVICE: 11/14/2016 SUBJECTIVE: The patient is doing well, has no acute complaints. PHYSICAL EXAMINATION: VITAL SIGNS: Temperature 98.7, pulse 87, respirations 16, O2 sat 96%, blood pressure 121/69. HEENT: Unremarkable. NECK: No JVD. CHEST: Fairly clear without wheezing. CARDIAC: S1, S2, irregularly irregular. ABDOMEN: Soft. EXTREMITIES: No edema. ASSESSMENT: 1. Postop from gastric bypass, relatively stable. 2. Stable sleep apnea. 3. Paroxysmal atrial fibrillation. PLAN: Mainly cardiac issue at this point in terms of disposition for discharge from the hospital. She is scheduled to have a sleep study in late November.
[2016-11-14] MEDS: Digoxin 0.25 MG TAB PO SCH (10:14)
[2016-11-14] MEDS: Enoxaparin Sodium 40 MG/0.4 ML SYRINGE SC SCH (10:15)
[2016-11-14] MEDS: Pantoprazole 40 MG VIAL IVP SCH (10:16)
[2016-11-14] MEDS: FLUoxetine HCl 20 MG CAP PO SCH (10:16)
--- NOTE | 2016-11-14 14:44 | PQF ---
CLINICAL DOCUMENTATION IMPROVEMENT CLARIFICATION FORM: ICD-10 Updated PLEASE DO AN ADDENDUM TO THE PROGRESS NOTE WITH ANY DOCUMENTATION UPDATES OR ADDITIONS AND CARRY THROUGH TO DC SUMMARY. THANK YOU. DATE: 11/14/16 ATTN: Dr. Heath Tovar Please exercise your independent, professional judgment in responding to the clarification form. Clinical indicators are provided on the bottom of this form for your review Please check appropriate box(s): [ ] Acute Respiratory Failure: [ ] with Hypoxia [ ] with Hypercapnia [ ] Acute On Chronic Respiratory Failure: [ ] with Hypoxia [ ] with Hypercapnia [ ] Acute Respiratory Failure due to: (etiology) [ ] Chronic Respiratory Failure only [ ] with Hypoxia [ ] with Hypercapnia [ ] Other diagnosis [ ] Unable to determine The following CLINICAL INDICATORS - SIGNS / SYMPTOMS are present in the medical record: GS PN 11/11: ON BIPAP SATS IN 80S PULMONARY PN 11/11: SHE DEVELOPED DESATURATION LAST NIGHT, REQUIRED CHANGE TO A VISION BIPAP RATHER THAN HER OWN HOME CPAP. ALSO HAD AN INCREASE IN REQUIREMENT OF HER O2. RISKS: CARDIOLOGY CONSULT: HX HTN, DIASTOLIC HEART FAILURE, COPD. CARDIOLOGY PN 11/10: CHF, ACUTE/ CHRONIC DIASTOLIC. TREATMENT: CPOE 11/09: RESP: O2 TO KEEP O2 SAT 92% CPOE 11/09: DUONEB Q 4 HR CPOE 11/11: IV LASIX 40 MG IV BID. DC'D 11/13 (This form is maintained as a part of the permanent medical record) 2014 [employer], [employer]. All Rights Reserved La Nena Jensen RN, BSN [email or web address] Office: [phone] [facility]
--- NOTE | 2016-11-14 14:55 | PRG ---
DATE OF SERVICE: 11/14/2016 SUBJECTIVE: The patient reports she is feeling pretty well. She is tolerating liquids well. Pain is controlled on p.o. medications. She had a bowel movement last night. She was still on amiodaron e IV for her heart which was just discontinued this minute. PHYSICAL EXAMINATION: VITAL SIGNS: Temperature 98.5, pulse 71, blood pressure 95/57. GENERAL: She looks fine. She is awake and alert. HEENT: Unremarkable. LUNGS: Clear. HEART: Regular rate and rhythm. ABDOMEN: Soft. Incisions healing well. ASSESSMENT: Status post gastric bypass, doing well. PLAN: We will discharge home when okay with Cardiology.
[2016-11-15] MEDS: Digoxin 0.25 MG TAB PO SCH (08:21)
[2016-11-15] MEDS: FLUoxetine HCl 20 MG CAP PO SCH (08:21)
[2016-11-15] MEDS: Pantoprazole 40 MG VIAL IVP SCH (08:22)
[2016-11-15] MEDS: Enoxaparin Sodium 40 MG/0.4 ML SYRINGE SC SCH (08:22)
--- NOTE | 2016-11-15 11:47 | PRG ---
DATE OF SERVICE: 11/15/2016 SUBJECTIVE: She is doing well, had no complaints today, she wants to go home. OBJECTIVE: VITAL SIGNS: Temperature 98.7, pulse 80, respirations 16, O2 sat 94%. HEENT: Unremarkable. NECK: No JVD. LUNGS: Clear to auscultation, no wheezing. CARDIOVASCULAR: S1, S2. Irregular. ABDOMEN: Soft. EXTREMITIES: No edema. LABORATORY DATA: No labs were done today. ASSESSMENT: 1. Stable sleep apnea. 2. Postoperative from gastric bypass. 3. Paroxysmal atrial fibrillation. PLAN: Discharge okay from a pulmonary standpoint, I think we are waiting contact lens technician's clearance. She has instructions to see me in the office after discharge.
[2016-11-15 12:43] VITALS: BP 125/59; TEMP 98.8
--- NOTE | 2016-11-15 21:53 | DIS ---
DISCHARGE DIAGNOSES: Morbid obesity, chronic obstructive pulmonary disease, obstructive sleep apnea , congestive heart failure, hypertension, EKG changes intraoperatively with ST-segment changes, card iomyopathy. PROCEDURES DURING ADMISSION: Laparoscopic Mariah-en-Y gastric bypass, intraoperative esophagogastrosc opy, and postoperative Gastrografin swallow. HOSPITAL COURSE: The patient was admitted and taken to the operating room, shortly after division o f the bowel, she was found to have significant EKG changes, requiring nitroglycerin. Procedure was rather complicated. Postoperatively, she was observed in the ICU. She was not intubated, but remai miguel ángel on BiPAP for a couple of days. Eventually, she was able to be weaned off that, came to the floo r, placed on telemetry. She did have some atrial fibrillation, requiring amiodarone, this has now b een weaned. She is doing well. She is tolerating liquids well. She is discharged home in good con dition on hydrocodone elixir, and Zofran. She will follow up with me in 2 weeks.
== END 2016-11-15 16:44 | disposition home or self-care (01) | DRG 619 ==
LOC: SURG A 11-09 05:59 → CCU 11-09 12:56 → 2NO 11-13 14:52
PROVIDERS: ADMIT Surgery; ATTEND Surgery
PROC: 0D164ZA Bypass Stomach to Jejunum, Percutaneous Endoscopic Approach (ICD-10-PCS; principal; 2016-11-09)
PROC: 0DJ00ZZ Inspection of Upper Intestinal Tract, Open Approach (ICD-10-PCS; 2016-11-09)
PROC: 5A09357 Assistance with Respiratory Ventilation, Less than 24 Consecutive Hours, Continuous Positive Airway Pressure (ICD-10-PCS; 2016-11-09)
PROC: 5A09457 Assistance with Respiratory Ventilation, 24-96 Consecutive Hours, Continuous Positive Airway Pressure (ICD-10-PCS; 2016-11-10)
PROC: 5A09457 Assistance with Respiratory Ventilation, 24-96 Consecutive Hours, Continuous Positive Airway Pressure (ICD-10-PCS; 2016-11-12)
PROC: 5A09357 Assistance with Respiratory Ventilation, Less than 24 Consecutive Hours, Continuous Positive Airway Pressure (ICD-10-PCS; 2016-11-14)
PROC: 5A09357 Assistance with Respiratory Ventilation, Less than 24 Consecutive Hours, Continuous Positive Airway Pressure (ICD-10-PCS; 2016-11-15)
DX: E66.01 Morbid (severe) obesity due to excess calories (principal); I50.33 Acute on chronic diastolic (congestive) heart failure; I47.1 Supraventricular tachycardia; I42.1 Obstructive hypertrophic cardiomyopathy; I48.0 Paroxysmal atrial fibrillation; Z68.43 Body mass index [BMI] 50.0-59.9, adult; R94.31 Abnormal electrocardiogram [ECG] [EKG]; R09.02 Hypoxemia; I11.0 Hypertensive heart disease with heart failure; K21.9 Gastro-esophageal reflux disease without esophagitis; G47.33 Obstructive sleep apnea (adult) (pediatric); J44.9 Chronic obstructive pulmonary disease, unspecified; Z87.891 Personal history of nicotine dependence; F32.9 Major depressive disorder, single episode, unspecified; Z78.0 Asymptomatic menopausal state; I87.2 Venous insufficiency (chronic) (peripheral)
CPT/HCPCS: 36415; 36416; 74241; 80048; 80053; 80076; 82150; 82553; 82805; 84484; 85025; 93005; 93010; 93798; 94640; 94660; A4216; C9113; J0282; J0360; J0670; J1100; J1160; J1200; J1642; J1644; J1650; J1885; J1940; J1956; J2001; J2270; J2405; J2550; J2704; J3010; J3475; J7070; J7620

== ENCOUNTER 2016-11-17 08:18 | Emergency (ER) | payer MEDICARE, MEDICAID ==
[2016-11-17 09:26] LABS: #Eosinphils 0.2 thou/uL (0.0-0.7); #Lymphocytes 1.4 thou/uL (1.20-3.40); #Monocytes 1.2 thou/uL (0.11-0.59); #Neutrophils 8.9 thou/uL (1.40-6.50); %Basophils 0.4 % (0.0-1.0); %Lymphocytes 11.7 % (21.0-51.0); %Monocytes 10.5 % (0.0-10.0); Hematocrit 34.4 % (36.0-47.0); Mean Platelet Volume 9.8 fL (7.4-10.4); Red Blood Cell (RBC) Count 4.41 mill/uL (4.20-5.40); White Blood Cell (WBC) Count 11.8 thou/uL (4.8-10.8)
[2016-11-17 09:32] LABS: Lactic Acid - Sepsis 1.3 mmol/L (0.5-2.2)
[2016-11-17] MEDS ORDERED: Lidocaine 1% w/Epinephrine 1:200K 30 ML VIAL ONE (09:35)
[2016-11-17 09:40] LABS: ALT (SGPT) 30 U/L (8-55); AST (SGOT) 14 U/L (5-34); Alkaline Phosphatase 58 U/L (40-150); Anion Gap 11 mmol/L (10-20); BUN (Urea Nitrogen) 9 mg/dL (9.8-20.1); Bilirubin, Total 0.7 mg/dL (0.2-1.2); CK (CPK) 23 U/L (29-168); Calc. Creatinine Clearance 0 mL/min (70-130); Carbon Dioxide 30 mmol/L (22-29); Chloride 99 mmol/L (98-107); Estimated GFR-MDRD Greater than 90; Globulin 3.4 g/dL (2.4-3.5); Protein, Total 6.4 g/dL (6.0-8.3)
[2016-11-17 09:42] LABS: Troponin I 0.085 ng/mL (< 0.028)
[2016-11-17 09:53] LABS: Hypochromia SLIGHT = 6-15 cells (100X) (0-5/hpf); Microcytosis SLIGHT = 6-15 cells (100X) (0-5/hpf); Polychromasia SLIGHT = 2-3 cells (100X) (0-2/hpf)
== END 2016-11-17 11:44 | disposition home or self-care (01) ==
LOC: ERS 08:18
DX: T81.4XXA Infection following a procedure, initial encounter (principal); I11.0 Hypertensive heart disease with heart failure; I50.9 Heart failure, unspecified; F32.9 Major depressive disorder, single episode, unspecified; F17.210 Nicotine dependence, cigarettes, uncomplicated; Z79.899 Other long term (current) drug therapy
CPT/HCPCS: 10180; 36415; 80053; 82550; 82553; 83605; 84484; 85025; 87040; 87070; 87076; 87205; 93005; 94760; 96361; 96374; J2270

== ENCOUNTER 2016-12-10 19:30 | Outpatient (CLI) | payer MEDICARE, MEDICAID | END 2016-12-10 19:31 | disposition home or self-care (01) | LOC: SLEEPLAB 19:30 | PROVIDERS: ATTEND Internal Medicine Critical Care Medicine | DX: G47.33 Obstructive sleep apnea (adult) (pediatric) (principal); R06.83 Snoring | CPT/HCPCS: 95811 ==

== ENCOUNTER 2017-05-12 07:31 | Outpatient (CLI) | payer MEDICARE, MEDICAID ==
[2017-05-12 09:12] LABS: #Eosinphils 0.2 thou/uL (0.0-0.7); #Lymphocytes 1.2 thou/uL (1.20-3.40); #Monocytes 0.4 thou/uL (0.11-0.59); #Neutrophils 2.9 thou/uL (1.40-6.50); %Basophils 0.2 % (0.0-1.0); %Eosinophils 3.8 % (0.0-10.0); %Lymphocytes 26.3 % (21.0-51.0); %Monocytes 8.1 % (0.0-10.0); %Neutrophils 61.6 % (42.0-75.0); Hemoglobin 13.7 g/dL (12.0-16.0); Mean Corpuscular Volume 90.6 fl (81.0-99.0); Mean Platelet Volume 9.7 fL (7.4-10.4); Platelet Count 148 thou/uL (130-400); RBC Distribution Width 14.3 % (11.5-14.5); Red Blood Cell (RBC) Count 4.71 mill/uL (4.20-5.40); White Blood Cell (WBC) Count 4.7 thou/uL (4.8-10.8)
[2017-05-12 09:30] LABS: ALT (SGPT) 17 U/L (8-55); AST (SGOT) 20 U/L (5-34); Albumin 3.7 g/dL (3.5-5.0); Alkaline Phosphatase 93 U/L (40-150); Anion Gap 8 mmol/L (10-20); BUN (Urea Nitrogen) 9 mg/dL (9.8-20.1); Bilirubin, Total 0.6 mg/dL (0.2-1.2); Calc. Creatinine Clearance 0 mL/min (70-130); Calcium 8.9 mg/dL (7.8-10.44); Carbon Dioxide 31 mmol/L (22-29); Chloride 107 mmol/L (98-107); Estimated GFR-MDRD Greater than 90; Globulin 3.2 g/dL (2.4-3.5); Glucose 84 mg/dL (70-105); Potassium 3.6 mmol/L (3.5-5.1); Protein, Total 6.9 g/dL (6.0-8.3); Sodium 142 mmol/L (136-145)
--- NOTE | 2017-05-13 18:41 | EKG ---
Test Reason : Blood Pressure : / mmHG Vent. Rate : 052 BPM Atrial Rate : 052 BPM P-R Int : 216 ms QRS Dur : 092 ms QT Int : 476 ms P-R-T Axes : 080 081 238 degrees QTc Int : 442 ms Sinus bradycardia with 1st degree A-V block Septal infarct , age undetermined Abnormal ECG Confirmed by ABDIRAHMAN MCINTYRE, DR. Jolley ([id number]) on 05/13/2017 6:41:20 PM Referred By: CHICO Confirmed By:DR. Samreen GARY MD
== END 2017-05-12 07:32 | disposition home or self-care (01) ==
LOC: LABBT 07:31
PROVIDERS: ATTEND Surgery
DX: Z01.818 Encounter for other preprocedural examination (principal); K43.2 Incisional hernia without obstruction or gangrene
CPT/HCPCS: 80053; 82306; 82607; 84207; 84425; 85025; 93005; 93010

== ENCOUNTER 2017-05-24 07:11 | Inpatient (IN) | payer MEDICARE, MEDICAID ==
[2017-05-12 08:20] VITALS: BMI 41.1
[2017-05-24] MEDS ORDERED: Levofloxacin 500 mg/D5W 100 ml Premix Bag ONE (09:05)
[2017-05-24] MEDS ORDERED: Bupivacaine/Epinephrine 0.25% 30 ML VIAL ONE (10:33)
[2017-05-24] MEDS ORDERED: Fentanyl 100 MCG/2 ML VIAL ONE ×4 (10:37→13:48)
[2017-05-24] MEDS ORDERED: Midazolam HCl 2 mg/2 ml Vial ONE (10:39)
[2017-05-24] MEDS ORDERED: Dextrose 5% in Water 1,000 ML IV PRN (12:14)
[2017-05-24] MEDS ORDERED: Promethazine HCl 25 MG/ML VIAL IM PRN (12:14)
[2017-05-24] MEDS ORDERED: Morphine 4 MG/ML VIAL SLOW IVP PRN ×2 (12:14)
[2017-05-24] MEDS ORDERED: Ondansetron HCl/PF 4 MG/2 ML Vial IVP PRN (12:14)
[2017-05-24] MEDS ORDERED: hydrALAZINE 20 MG/ML VIAL SLOW IVP PRN (12:14)
[2017-05-24] MEDS ORDERED: HYDROcodone/Acetaminophen 10/325 mg Tablet PO PRN (12:14)
[2017-05-24] MEDS ORDERED: Dextrose 50% Abboject 50 ML SYRINGE SLOW IVP PRN (12:14)
[2017-05-24] MEDS ORDERED: Levofloxacin 500 mg/D5W 100 ml Premix Bag IVPB SCH (12:15)
--- NOTE | 2017-05-24 12:38 | OP ---
PREOPERATIVE DIAGNOSIS: Incisional ventral hernia. SURGEON: Heath Tovar M.D. PROCEDURE: Laparoscopic ventral hernia repair with mesh. INDICATIONS: This is a 56-year-old female who developed an incisional hernia after gastric bypass selby rgery in the left upper quadrant. FINDINGS: About a 4 cm defect. PROCEDURE IN DETAIL: After informed consent was obtained, the patient was taken to the operating diana m and given general endotracheal anesthesia. She was placed in supine position. Her abdomen and fla nk were prepped and draped in usual fashion. Local anesthesia infiltrated subcutaneously and deep. A 12 mm incision was performed right flank and a Veress needle inserted. Drop test performed. Pneum operitoneum was created to a volume of 2 liters of carbon dioxide. Utilizing a bladeless, 12 mm troc ar and 0 degree laparoscope direct visual entry in the abdominal cavity was performed. Pneumoperiton eum was created to a pressure of 15 mmHg. Under direct vision, two 5 mm ports were placed in the rig ht side. The falciform ligament had to be taken down with the LigaSure. Then a laparoscopic lysis o f adhesions was performed utilizing the LigaSure. The defect was closed with a #2 running 0 six-inch V-Loc sutures. Then, a 6 x 8 inch piece of mesh was used. The pressure was decreased to 10 mmHg. The 6 x 8 cm Proceed mesh was fashioned with a total of 8 sutures alternating color between green and white circumferentially. It was hydrated and rolled and introduced intraabdominally, then was unrol led and utilizing the GraNee needle, the sutures were individually grasped through the skin and secur ed. Then, the mesh was further secured utilizing the SecureStrap Tacker. Hemostasis was assured. T rocars and retractors removed. The skin closed with interrupted 4-0 Rapide. Dermabond applied. The patient tolerated the procedure well and was transferred to recovery in good condition. Sponge and needle count verified correct x2.
[2017-05-24] MEDS ORDERED: Glycopyrrolate 0.2 MG/ML 5 ML SYRINGE ONE (13:14)
[2017-05-24] MEDS ORDERED: ePHEDrine/0.9% NaCl/PF SYRINGE 50 mg/10 ml ONE (13:14)
[2017-05-24] MEDS ORDERED: Lidocaine 1% PF 5 ML VIAL ONE (13:14)
[2017-05-24] MEDS ORDERED: Esmolol 100 MG/10 ML VIAL ONE (13:14)
[2017-05-24] MEDS ORDERED: Ondansetron HCl/PF 4 MG/2 ML Vial ONE (13:14)
[2017-05-24] MEDS ORDERED: Morphine 4 MG/ML VIAL ONE (13:35)
[2017-05-24] MEDS ORDERED: D5 1/2 NS w/20 mEq KCL 1,000 ML ONE (13:48)
[2017-05-24] MEDS: D5 1/2 NS w/20 mEq KCL 1,000 ML IV SCH ×2 (14:40→22:36)
[2017-05-24] MEDS: Ketorolac Tromethamine 30 MG/ML VIAL IVP SCH ×2 (18:31→23:39)
[2017-05-24] MEDS: Famotidine 20 MG TAB PO SCH (21:02)
[2017-05-24] MEDS: Famotidine/PF 20 mg/2ml Vial SLOW IVP SCH (21:04)
[2017-05-24] MEDS: HYDROcodone/Acetaminophen 10/325 mg Tablet PO PRN (21:09)
[2017-05-25] MEDS ORDERED: Sodium Chloride 0.9% 500 ML IVPB SCH ×3 (01:15→20:45)
[2017-05-25 04:33] LABS: #Eosinphils 0.1 thou/uL (0.0-0.7); #Lymphocytes 1.2 thou/uL (1.20-3.40); #Monocytes 0.5 thou/uL (0.11-0.59); #Neutrophils 3.6 thou/uL (1.40-6.50); %Basophils 0.7 % (0.0-1.0); %Eosinophils 2.1 % (0.0-10.0); %Lymphocytes 22.5 % (21.0-51.0); %Monocytes 8.8 % (0.0-10.0); %Neutrophils 65.9 % (42.0-75.0); Hemoglobin 11.9 g/dL (12.0-16.0); Mean Corpuscular HGB CONC 32.3 g/dL (32.0-36.0); Mean Corpuscular Hemoglobin 29.6 pg (27.0-31.0); Mean Corpuscular Volume 91.5 fl (81.0-99.0); Platelet Count 131 thou/uL (130-400); Red Blood Cell (RBC) Count 4.04 mill/uL (4.20-5.40); White Blood Cell (WBC) Count 5.4 thou/uL (4.8-10.8)
[2017-05-25 04:39] LABS: Anion Gap 8 mmol/L (10-20); BUN (Urea Nitrogen) 6 mg/dL (9.8-20.1); Calc. Creatinine Clearance 199 mL/min (70-130); Calcium 8.1 mg/dL (7.8-10.44); Carbon Dioxide 29 mmol/L (22-29); Chloride 108 mmol/L (98-107); Estimated GFR-MDRD Greater than 90; Glucose 93 mg/dL (70-105); Potassium 3.9 mmol/L (3.5-5.1); Sodium 141 mmol/L (136-145)
[2017-05-25] MEDS: HYDROcodone/Acetaminophen 10/325 mg Tablet PO PRN ×3 (05:57→21:44)
[2017-05-25] MEDS: Ketorolac Tromethamine 30 MG/ML VIAL IVP SCH ×4 (05:58→23:45)
[2017-05-25] MEDS: D5 1/2 NS w/20 mEq KCL 1,000 ML IV SCH ×3 (07:48→20:54)
[2017-05-25] MEDS: Famotidine 20 MG TAB PO SCH ×2 (10:04→20:54)
[2017-05-25] MEDS: Enoxaparin Sodium 40 MG/0.4 ML SYRINGE SC SCH (10:05)
[2017-05-25] MEDS ORDERED: Loratadine 10 MG TAB PO PRN (21:27)
[2017-05-25] MEDS ORDERED: Furosemide 40 MG TAB PO SCH (21:30)
[2017-05-26] MEDS: Famotidine/PF 20 mg/2ml Vial SLOW IVP SCH (00:23)
[2017-05-26] MEDS: HYDROcodone/Acetaminophen 10/325 mg Tablet PO PRN ×3 (02:32→14:12)
[2017-05-26] MEDS: Ketorolac Tromethamine 30 MG/ML VIAL IVP SCH (05:51)
[2017-05-26] MEDS: D5 1/2 NS w/20 mEq KCL 1,000 ML IV SCH (05:52)
[2017-05-26] MEDS ORDERED: FLUoxetine HCl 20 MG CAP PO SCH (09:00)
[2017-05-26] MEDS ORDERED: Furosemide 40 MG TAB PO SCH (09:00)
[2017-05-26] MEDS ORDERED: Folic Acid 1 MG TAB PO SCH (09:00)
[2017-05-26] MEDS: Enoxaparin Sodium 40 MG/0.4 ML SYRINGE SC SCH (09:53)
[2017-05-26] MEDS: Famotidine 20 MG TAB PO SCH (09:55)
[2017-05-26] MEDS ORDERED: Ondansetron ODT 4 MG TAB PO PRN (13:03)
[2017-05-26] MEDS ORDERED: Ondansetron ODT 4 MG TAB SL PRN (13:15)
--- NOTE | 2017-05-26 13:28 | DIS ---
DISCHARGE DIAGNOSES: 1. Incisional ventral hernia, postoperative pain, control issues. 2. Urinary retention. HOSPITAL COURSE: The patient was admitted. She underwent a laparoscopic ventral hernia repair with mesh. She had quite a bit of pain postoperatively and was unable to go home the next day. She was u nable to void. She had to have repeated I&O catheterization. She is better now. Pain is controlled on p.o. meds. She is voiding. She is tolerating a diet. She is discharged home in good condition on hydrocodone and Zofran to follow up with me in 2 weeks.
[2017-05-26] MEDS ORDERED: Bisacodyl 10 MG SUPP PR SCH (14:15)
[2017-05-26 15:07] VITALS: BP 158/76; TEMP 98.7
== END 2017-05-26 16:51 | disposition home or self-care (01) | DRG 354 ==
LOC: SDC 07:11 → SURG A 12:14
PROVIDERS: ADMIT Surgery; ATTEND Surgery
PROC: 0WUF4JZ Supplement Abdominal Wall with Synthetic Substitute, Percutaneous Endoscopic Approach (ICD-10-PCS; principal; 2017-05-24)
DX: K43.2 Incisional hernia without obstruction or gangrene (principal); Z68.41 Body mass index [BMI] 40.0-44.9, adult; E66.01 Morbid (severe) obesity due to excess calories; F32.9 Major depressive disorder, single episode, unspecified; K43.9 Ventral hernia without obstruction or gangrene; R33.9 Retention of urine, unspecified
CPT/HCPCS: 36415; 80048; 85025; 96374; C1781; J0131; J1650; J1885; J1956; J2001; J2250; J2270; J2405; J3010; Q0162

== ENCOUNTER 2017-10-27 11:06 | Outpatient (CLI) | payer MEDICARE, MEDICAID | END 2017-10-27 11:07 | disposition home or self-care (01) | LOC: BICRAD 11:06 | PROVIDERS: ATTEND Obstetrics & Gynecology | DX: M25.562 Pain in left knee (principal); M17.12 Unilateral primary osteoarthritis, left knee ==

== ENCOUNTER 2018-02-13 19:53 | Emergency (ER) | payer MEDICARE, OTHER ==
[2018-02-13] MEDS ORDERED: Ondansetron PF 4 MG/2 ML Vial ONE (20:18)
[2018-02-13] MEDS ORDERED: Ketorolac Tromethamine 30 MG/ML VIAL ONE (20:18)
[2018-02-13 20:27] LABS: #Eosinphils 0.1 thou/uL (0.0-0.7); #Monocytes 0.4 thou/uL (0.11-0.59); #Neutrophils 5.6 thou/uL (1.40-6.50); %Basophils 0.4 % (0.0-1.0); %Eosinophils 1.6 % (0.0-10.0); %Lymphocytes 14.5 % (21.0-51.0); %Monocytes 5.5 % (0.0-10.0); Hemoglobin 15.8 g/dL (12.0-16.0); Mean Corpuscular HGB CONC 33.7 g/dL (32.0-36.0); Mean Corpuscular Hemoglobin 32.4 pg (27.0-31.0); Mean Corpuscular Volume 96.2 fL (78.0-98.0); Mean Platelet Volume 9.9 fL (7.4-10.4); Platelet Count 160 thou/uL (130-400); RBC Distribution Width 13.2 % (11.5-14.5); Red Blood Cell (RBC) Count 4.87 mill/uL (4.20-5.40); White Blood Cell (WBC) Count 7.1 thou/uL (4.8-10.8)
[2018-02-13 20:49] LABS: ALT (SGPT) 21 U/L (8-55); AST (SGOT) 25 U/L (5-34); Alkaline Phosphatase 92 U/L (40-150); Anion Gap 12 mmol/L (10-20); BUN (Urea Nitrogen) 10 mg/dL (9.8-20.1); Bilirubin, Total 0.5 mg/dL (0.2-1.2); Calc. Creatinine Clearance 0 mL/min (70-130); Calcium 9.5 mg/dL (7.8-10.44); Carbon Dioxide 25 mmol/L (22-29); Chloride 108 mmol/L (98-107); Estimated GFR-MDRD 87; Globulin 3.3 g/dL (2.4-3.5); Glucose 104 mg/dL (70-105); Potassium 3.8 mmol/L (3.5-5.1); Protein, Total 7.3 g/dL (6.0-8.3); Sodium 141 mmol/L (136-145)
--- NOTE | 2018-02-13 21:14 | CT ---
CT ABDOMEN AND PELVIS WITHOUT CONTRAST: 02/13/2018 HISTORY: Left flank pain. COMPARISON: 03/30/2014 TECHNIQUE: Multiple contiguous axial images were obtained in a CT of the abdomen and pelvis without contrast. C oronal reformats were performed. FINDINGS: There are numerous nonobstructing calcifications in the left kidney, measuring up to 3 mm in size. T here is mild left hydronephrosis. At the distal aspect of the left ureter, at the ureterovesical nicole ction, there is a 1 to 2 mm calcification. No right-sided hydronephrosis is seen. No renal calculi are seen on the right. There are hyperdensities in the right kidney, which may represent small, hype rdense cysts. The gallbladder has been removed. The liver, adrenal glands, spleen, and pancreas are unremarkable, although evaluation is limited without IV contrast. Post surgical changes are seen in the stomach. The reproductive organs are unremarkable. The large and small bowel are unremarkable. Atherosclerotic calcifications are seen in the aorta. No abdomina l or pelvic lymphadenopathy is seen. Degenerative changes are seen in the spine. The visualized inferior thorax and abdominal wall soft t issues are unremarkable. IMPRESSION: 1. Small left ureterovesical junction calcification with mild left hydronephrosis. 2. Nonobstructing left renal calcifications. POS: [facility]
[2018-02-13 21:45] LABS: Bilirubin Negative (Negative); Blood, Urine Large (Negative); Clarity CLOUDY (Clear); Glucose, Urine (Dipstick) Negative (Negative); Leukocyte Moderate (Negative); Nitrite Negative (Negative); Protein, Urine (Dipstick) Trace mg/dL (Neg-Trace); Specific Gravity, Urine 1.014 (1.002-1.036); pH, Urine 6.5 (5.0-9.0)
[2018-02-13 21:47] LABS: Bacteria/HPF None Seen HPF (None Seen); Hyaline Casts/LPF 4-6 HYALINE CAST LPF (0-3 Hyaline); Pathc Cast-AUWi Flag 1.16 (0-2.49); RBC/HPF GREATER THAN 50-TNTC HPF (0-3)
[2018-02-13] MEDS ORDERED: HYDROcodone/Acetaminophen 5/325 mg Tablet ONE (22:09)
== END 2018-02-13 22:37 | disposition home or self-care (01) ==
LOC: ERS 19:53
DX: N13.2 Hydronephrosis with renal and ureteral calculous obstruction (principal); J44.9 Chronic obstructive pulmonary disease, unspecified; I11.0 Hypertensive heart disease with heart failure; I50.9 Heart failure, unspecified; F32.9 Major depressive disorder, single episode, unspecified; F17.210 Nicotine dependence, cigarettes, uncomplicated; Z79.899 Other long term (current) drug therapy
CPT/HCPCS: 74176; 80053; 81003; 81015; 85025; 96361; 96374; 96375; J1885; J2405

== ENCOUNTER 2019-08-15 07:16 | Emergency (ER) | payer MEDICARE, OTHER ==
[2019-08-15] MEDS ORDERED: Morphine 4 MG/ML VIAL ONE ×2 (07:48→07:49)
[2019-08-15] MEDS ORDERED: Dexamethasone 10 MG/ML VIAL ONE (07:49)
[2019-08-15] MEDS ORDERED: Ondansetron PF 4 MG/2 ML Vial ONE (07:49)
[2019-08-15 08:18] LABS: #Eosinphils 0.1 thou/uL (0.0-0.7); #Lymphocytes 0.9 thou/uL (1.20-3.40); #Monocytes 0.8 thou/uL (0.11-0.59); #Neutrophils 7.5 thou/uL (1.40-6.50); %Basophils 0.3 % (0.0-1.0); %Eosinophils 0.8 % (0.0-10.0); %Lymphocytes 9.5 % (21.0-51.0); %Monocytes 8.7 % (0.0-10.0); %Neutrophils 80.8 % (42.0-75.0); Hemoglobin 15.1 g/dL (12.0-16.0); Mean Corpuscular HGB CONC 32.4 g/dL (32.0-36.0); Mean Corpuscular Hemoglobin 32.2 pg (27.0-31.0); Mean Corpuscular Volume 99.6 fL (78.0-98.0); Mean Platelet Volume 9.9 fL (7.4-10.4); Platelet Count 133 thou/uL (130-400); RBC Distribution Width 12.9 % (11.5-14.5); White Blood Cell (WBC) Count 9.3 thou/uL (4.8-10.8)
[2019-08-15 08:48] LABS: ALT (SGPT) 23 U/L (8-55); AST (SGOT) 24 U/L (5-34); Albumin 3.5 g/dL (3.5-5.0); Alkaline Phosphatase 68 U/L (40-110); Anion Gap 11 mmol/L (10-20); BUN (Urea Nitrogen) 7 mg/dL (9.8-20.1); Bilirubin, Total 0.6 mg/dL (0.2-1.2); Calc. Creatinine Clearance 0 mL/min (70-130); Calcium 8.5 mg/dL (7.8-10.44); Carbon Dioxide 27 mmol/L (22-29); Chloride 107 mmol/L (98-107); Estimated GFR-MDRD Greater than 90; Globulin 2.9 g/dL (2.4-3.5); Glucose 100 mg/dL (70-105); Potassium 4.1 mmol/L (3.5-5.1); Protein, Total 6.4 g/dL (6.0-8.3); Sodium 141 mmol/L (136-145)
--- NOTE | 2019-08-15 10:47 | CT ---
CT lumbar spine noncontrast: DATE: 08/15/2019 HISTORY: 58-year-old female with acute severe low back pain FINDINGS: There is a broad region of intermediate density in the subcutaneous fat posterior to the dorsal lumba r fascia centrally and right and left, spanning all visualized levels. This is probably superficial soft tissue edema. Fluid or scar in the presacral space of lower pelvis, incompletely imaged. Similar haziness and fat stranding around bifurcation of abdominal aorta. Mild DJD right SI joint. Moderate DJD at left SI joint. Focal approximately 0.6 x 0.5 cm osteoblastic lesion in right sacral ala. Similar sized rim-sclerotic lesion at left sacral ala. Both of these have not changed since CT abdomen and pelvis of 03/30/2014, and are therefore benign. 5 lumbar-type vertebrae. Vertebral body heights are maintained. Mild disc space narrowing at all leve ls except L5-S1, which is of normal disc height. No central spinal canal stenosis at any level. In fact, the spinal canal and generous in caliber at all levels. At L2-3 there is mild to moderate right and mild left facet DJD. At L3-4 there is mild to moderate bilateral facet DJD. At L4-5 there is mild diffuse disc bulge, bilateral moderate facet DJD causing minimal anterolisthesi s of L4 on L5 by approximately 2 mm, and moderate right neural foraminal stenosis, and moderate to severe left neural foraminal stenosis mostly due to the disc bulge. At L5-S1 there is moderate to severe bilateral facet DJD, including vacuum joint phenomenon. Mild dis c bulge. Mild right and moderate left neural foraminal stenosis. IMPRESSION: 1.) High-grade bilateral facet osteoarthrosis at L4-5 and L5-S1. 2) the degenerative disc disease is relatively mild. 3) bilateral high-grade neural foraminal stenosis at L4-5. 4) no central spinal canal stenosis at any level. 5) small amount of unorganized fluid or edema in lower retroperitoneum and lower pelvis at midline, i ncompletely imaged.
[2019-08-15 11:56] LABS: Bacteria/HPF None Seen HPF (None Seen); Bilirubin Negative (Negative); Blood, Urine Negative (Negative); Clarity Clear (Clear); Glucose, Urine (Dipstick) Normal (Negative); Leukocyte 25 Leu/uL (Negative); Nitrite Negative (Negative); Protein, Urine (Dipstick) Negative (Neg-Trace); RBC/HPF 0-3 HPF (0-3); Squamous Epithelial 0-3 HPF (0-3); Urobilinogen Normal mg/dL (Less than 2); WBC/HPF 0-3 HPF (0-3)
== END 2019-08-15 11:12 | disposition home or self-care (01) ==
LOC: ERS 07:16
DX: M47.816 Spondylosis without myelopathy or radiculopathy, lumbar region (principal); I11.0 Hypertensive heart disease with heart failure; I50.9 Heart failure, unspecified; G47.30 Sleep apnea, unspecified; F17.210 Nicotine dependence, cigarettes, uncomplicated; J44.9 Chronic obstructive pulmonary disease, unspecified; Z79.899 Other long term (current) drug therapy
CPT/HCPCS: 72131; 80053; 81003; 81015; 85025; 96374; 96375; J1100; J2270; J2405